=== PATIENT | male | born 1935 | race African-American/Black ===

== ENCOUNTER 2017-02-11 13:20 | Emergency (ER) | payer OTHER ==
[2017-02-11 13:31] VITALS: BP 160/93; PULSE 70; TEMP 97.8; BMI 31.1
--- NOTE | 2017-02-11 14:21 | PDOC ---
History of Present Illness - General Chief Complaint: Eye Problem Stated Complaint: EYE PAIN, SWELLING (DEMENTIA) Time Seen by Provider: 02/11/17 13:45 History Source: Patient Exam Limitations: No Limitations - History of Present Illness Initial Comments: 02/11/17 14:23 81-year-old male presents to the ED with pain to the left eye associated with discharge and tearing this morning. Patient denies injury to the affected area but states history of glaucoma and cataracts with surgery to his right eye but denies surgery to his left eye. 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 Timing/Duration: 24 hours Severity: moderate Associated Symptoms: reports: denies symptoms Past History - Past Medical History Allergies/Adverse Reactions: Allergies Allergy/AdvReac Type Severity Reaction Status Date / Time No Known Allergies Allergy Verified 02/11/17 13:31 Home Medications: Ambulatory Orders Amlodipine Besylate [Norvasc -] 10 mg PO DAILY 07/14/16 Clopidogrel Bisulfate [Plavix -] 75 mg PO DAILY 07/14/16 Glimepiride [Amaryl -] 4 mg PO DAILY@0700 07/14/16 Simvastatin 40 mg PO DAILY 07/14/16 Valsartan [Diovan] 320 mg PO DAILY 07/14/16 Cardiac Disorders: Yes Dementia: Yes Diabetes: Yes HTN: Yes Hypercholesterolemia: Yes Other medical history: LEGALLY BLIND - Psycho/Social/Smoking Cessation Hx Anxiety: No Suicidal Ideation: No Smoking History: Never smoked Have you smoked in the past 12 months: No Hx Alcohol Use: No Drug/Substance Use Hx: No Substance Use Type: None Patient Lives Alone: No Review of Systems - Review of Systems Able to Perform ROS?: Yes Constitutional: No: Symptoms Reported HEENTM: Yes: Eye Pain, Tearing Musculoskeletal: No: Symptoms Reported Integumentary: No: Symptoms Reported Neurological: No: Headache, Dizziness *Physical Exam - Vital Signs Last Vital Signs Temp Pulse Resp BP Pulse Ox 97.8 F 70 20 160/93 99 02/11/17 13:23 02/11/17 13:23 02/11/17 13:23 02/11/17 13:23 02/11/17 13:23 - Physical Exam General Appearance: Yes: Nourished, Appropriately Dressed. No: Apparent Distress HEENT: positive: EOMI (Noted whitish discharge to the lacrimal duct region and mild edema to the upper and lower eyelid secondary to inflammation and erythema. ) Integumentary: positive: Normal Color, Warm, Moist Neurologic: positive: Motor Strength 5/5 (ambulatory with cane) Medical Decision Making - Medical Decision Making 02/11/17 14:30 Patient here with complaints of discharge and burning itching sensation to the left eye since this morning. As per daughter patient had cool compresses placed with minimal improvement so decided bring him to the ER. Patient exam appears to have conjunctivitis/blepharitis. Patient be discharged home with erythromycin ointment and recommendations to come to new with cold compresses. *DC/Admit/Observation/Transfer Diagnosis at time of Disposition: Blepharitis Qualifiers: Blepharitis type: unspecified type Laterality: left Eyelid: both upper and lower Qualified Code(s): H01.004 - Unspecified blepharitis left upper eyelid; H01.005 - Unspecified blepharitis left lower eyelid Conjunctivitis Qualifiers: Conjunctivitis type: acute Acute conjunctivitis type: bacterial Laterality: left Qualified Code(s): H10.32 - Unspecified acute conjunctivitis, left eye - Discharge Dispostion Disposition: HOME Condition at time of disposition: Good - Referrals Referrals: Myranda Oliver MD [Primary Care Provider] - - Patient Instructions Printed Discharge Instructions: DI for Blepharitis Additional Instructions: Please continue with cold compresses to the affected area and use erythromycin as prescribed for the next 5 days. Please follow-up with your PCP and to return to ED in 3 days if symptoms do not improve. Otherwise follow-up with your eye doctor as scheduled
== END 2017-02-11 14:36 | disposition home or self-care (01) ==
LOC: JERFT 13:20
DX: H01.004 Unspecified blepharitis left upper eyelid (principal); H10.32 Unspecified acute conjunctivitis, left eye; H54.8 Legal blindness, as defined in USA; I10 Essential (primary) hypertension; E11.9 Type 2 diabetes mellitus without complications; F03.90 Unspecified dementia, unspecified severity, without behavioral disturbance, psychotic disturbance, mood disturbance, and anxiety; I51.9 Heart disease, unspecified
CPT/HCPCS: 99281-25